=== PATIENT | female | born 1990 | race Caucasian/White ===

== ENCOUNTER 2019-10-10 19:53 | Observation (INO) | payer OTHER ==
--- NOTE | 2019-10-10 21:21 | ED ---
General Adult HPI - General Chief complaint: ENT Stated complaint: Difficulty swallowing Time Seen by Provider: 10/10/19 20:20 Source: patient, family Mode of arrival: ambulatory Limitations: no limitations - History of Present Illness Initial comments: Dictation was produced using [employer] dictation software. please excuse any grammatical, word or spelling errors. This patient was cared for during a federal and state declared state of emergency secondary to Covid 19 Chief Complaint: 39-year-old feel presents with fatigue and dysphagia History of Present Illness: Patient 39-year-old female she presents today with chronic fatigue and dysphagia. Patient states that her symptoms all started several months ago where she was diagnosed with pelvic congestion syndrome. Patient has been worked up extensively by primary care physician. She was just seen by the neurologist recently. She's been getting worked up for dysphagia and fatigue. She reports that she had a normal EGD recently. Patient recently had a chest CT. She is scheduled to have MR studies ordered by her neurologist. According to family member at bedside patient has been more fatigued than usual prompting visitation to the emergency department today. Patient's also have further workup done in 2 weeks however guarded patient and family member she cannot wait 2 weeks. She's been under a lot of stress given her recent medical issues. The ROS documented in this emergency department record has been reviewed and confirmed by me. Those systems with pertinent positive or negative responses have been documented in the HPI. All other systems are other negative and/or noncontributory. PHYSICAL EXAM: General Impression: Alert and oriented x3, not in acute distress, no drooling, no respiratory distress HEENT: Normocephalic atraumatic, extra-ocular movements intact, pupils equal and reactive to light bilaterally, mucous membranes moist. Cardiovascular: Heart regular rate and rhythm Chest: Able to complete full sentences, no retractions, no tachypnea Abdomen: abdomen soft, non-tender, non-distended, no organomegaly Musculoskeletal: Pulses present and equal in all extremities, no peripheral edema Motor: no focal deficits noted Neurological: CN II-XII grossly intact, no focal motor or sensory deficits noted Skin: Intact with no visualized rashes Psych: Normal affect and mood ED course: 29-year-old female presents with chief complaint of dysphagia and fatigue. According to patient patient has extensive workup that has really been performed. There is a lot of pending studies left. Part of the reason why coming to the emergency department was patient reports that she cannot wait much longer for her testing to be performed. Patient's not in any acute distress at this time. Does not drooling or showing signs of respiratory distress. Patient refused x-ray imaging she states that she just had this done recently at her neurologist office. Family member at bedside pulled me aside privately and reports that he is concerned about her mental health. He reports that patient has been a lot less upbeat and outgoing as usual. He does not feel concerned about any suicidality or homicidality. He has not noted any strange behavior. Laboratory evaluation obtained showing no acute processes. Patient did not feelcomfortable being discharged. Patient does not appear to be in any significant distress at this time patient be admitted observation with consultation to GI. Patient will be admitted to [facility] hospitalist group. We will have psychiatry on consult as well. - Related Data Allergies Allergy/AdvReac Type Severity Reaction Status Date / Time Penicillins Allergy Rash/Hives Verified 10/10/19 20:04 Sulfa (Sulfonamide Allergy Rash/Hives Verified 10/10/19 20:04 Antibiotics) Review of Systems ROS Statement: Those systems with pertinent positive or pertinent negative responses have been documented in the HPI. ROS Other: All systems not noted in ROS Statement are negative. Past Medical History Additional Past Medical History / Comment(s): swallowing difficulty History of Any Multi-Drug Resistant Organisms: None Reported Additional Past Surgical History / Comment(s): EGD Past Psychological History: Anxiety Smoking Status: Never smoker Past Alcohol Use History: None Reported Past Drug Use History: None Reported General Exam Limitations: no limitations Course Vital Signs 10/10/19 19:58 Temperature 98.4 F Pulse Rate 87 Respiratory 20 Rate Blood Pressure 116/76 O2 Sat by Pulse 98 Oximetry Medical Decision Making - Lab Data Result diagrams: 10/10/19 21:51 10/10/19 21:51 Lab Results 10/10/19 10/10/19 Range/Units 21:51 21:51 WBC 6.6 (3.8-10.6) k/uL RBC 4.76 (3.80-5.40) m/uL Hgb 13.9 (11.4-16.0) gm/dL Hct 41.7 (34.0-46.0) % MCV 87.6 (80.0-100.0) fL MCH 29.2 (25.0-35.0) pg MCHC 33.4 (31.0-37.0) g/dL RDW 12.3 (11.5-15.5) % Plt Count 202 (150-450) k/uL Neutrophils % 58 % Lymphocytes % 33 % Monocytes % 5 % Eosinophils % 1 % Basophils % 1 % Neutrophils # 3.8 (1.3-7.7) k/uL Lymphocytes # 2.2 (1.0-4.8) k/uL Monocytes # 0.3 (0-1.0) k/uL Eosinophils # 0.1 (0-0.7) k/uL Basophils # 0.1 (0-0.2) k/uL Sodium 138 (137-145) mmol/L Potassium 4.0 (3.5-5.1) mmol/L Chloride 106 (98-107) mmol/L Carbon Dioxide 25 (22-30) mmol/L Anion Gap 7 mmol/L BUN 9 (7-17) mg/dL Creatinine 0.65 (0.52-1.04) mg/dL Est GFR (CKD-EPI)AfAm >90 (>60 ml/min/1.73 sqM) Est GFR (CKD-EPI)NonAf >90 (>60 ml/min/1.73 sqM) Glucose 82 (74-99) mg/dL Calcium 9.1 (8.4-10.2) mg/dL Magnesium 2.0 (1.6-2.3) mg/dL Lipase 243 (23-300) U/L Disposition Clinical Impression: Dysphagia Disposition: ADMITTED IP TO THIS [facility] Condition: Fair Referrals: Con Coleman MD [Primary Care Provider] - 1-2 days Decision Time: 00:04
[2019-10-10 22:04] LABS: Basophils # (A) 0.1 k/uL (0-0.2); Basophils % (A) 1 %; Eosinophils # (A) 0.1 k/uL (0-0.7); Eosinophils % (A) 1 %; HCT 41.7 % (34.0-46.0); HGB 13.9 gm/dL (11.4-16.0); Lymphocytes # (A) 2.2 k/uL (1.0-4.8); Lymphocytes % (A) 33 %; MCH 29.2 pg (25.0-35.0); MCHC 33.4 g/dL (31.0-37.0); MCV 87.6 fL (80.0-100.0); Monocytes # (A) 0.3 k/uL (0-1.0); Monocytes % (A) 5 %; Neutrophils # (A) 3.8 k/uL (1.3-7.7); Neutrophils % (A) 58 %; Platelet Count 202 k/uL (150-450); RBC 4.76 m/uL (3.80-5.40); RDW 12.3 % (11.5-15.5); WBC 6.6 k/uL (3.8-10.6)
[2019-10-10 22:16] LABS: African American GFR (CKD) >90 (>60 ml/min/1.73 sqM); Anion Gap 7 mmol/L; Blood Urea Nitrogen 9 mg/dL (7-17); Calcium 9.1 mg/dL (8.4-10.2); Carbon Dioxide 25 mmol/L (22-30); Chloride 106 mmol/L (98-107); Glucose 82 mg/dL (74-99); Non-African American GFR(CKD) >90 (>60 ml/min/1.73 sqM); Sodium 138 mmol/L (137-145)
[2019-10-11] MEDS ORDERED: NALOXONE 0.4 MG/ML 1 ML VIAL IV PRN (00:04)
[2019-10-11] MEDS: SODIUM CHLORIDE 0.9% 1,000 ML IV SCH ×3 (01:11→20:18)
[2019-10-11] MEDS: PANTOPRAZOLE 40 MG TABLET PO SCH ×2 (10:36→16:24)
--- NOTE | 2019-10-11 15:31 | P.CONS ---
History of Present Illness - Reason for Consult Consult date: 10/11/19 Dysphagia Requesting physician: Kalli Miller - Chief Complaint Fatigue, weakness, difficulty swallowing - History of Present Illness 29-year-old female who presented to the hospital for evaluation of increasing weakness and fatigue and difficulty swallowing. Patient reports problems with what she describes as gastritis since July. She reports bloating, abdominal distention and episodes of difficulty swallowing. She reports the sensation of food getting stuck and reports that it now feels as if she has the same problem with liquids. She also reports regurgitation and sore throat. The patient had endoscopic evaluation with a surgeon, Dr. Santos, in evaluation and reports that she was told that she had LA grade B esophagitis in that based on her EGD.she may have a motility disorder of her esophagus. She was started on Prilosec therapy and Reglan therapy. Currently she is no longer taking Prilosec and only taking Reglan on an as-needed basis. The patient has had several months of fatigue and is being evaluated with the neurology service with plan for outpatient MRI. She is also recently been diagnosed with pelvic congestion syndrome which she reports causes lower abdominal bloating and distention. She states that bowel movements are normal with no signs or symptoms of GI bleeding. No prior colonoscopy. Review of Systems REVIEW OF SYSTEMS: CONSTITUTIONAL: Denies any fevers, chills, but does report generalized weakness and fatigue. CARDIOVASCULAR: Denies any chest pain, palpitations high or low blood pressures RESPIRATORY: Denies any shortness of breath, hemoptysis or cough. GENITOURINARY: No dysuria or hematuria. MUSCULOSKELETAL: No weakness reported. SKIN: Denies any new rashes or lesions, jaundice or pallor. PSYCHIATRIC: Patient is having depressed mood and anxiety in association with medical problems. NEUROLOGY: Denies headache, denies any new focal deficits. EARS/NOSE/THROAT: No recent hearing change, congestion, nasal discharge or sore throat. EYES: No pain in eyes, discharge or change in vision. GASTROINTESTINAL: As per HPI. Past Medical History Additional Past Medical History / Comment(s): swallowing difficulty History of Any Multi-Drug Resistant Organisms: None Reported Additional Past Surgical History / Comment(s): EGD Past Anesthesia/Blood Transfusion Reactions: No Reported Reaction Past Psychological History: Anxiety Smoking Status: Never smoker Past Alcohol Use History: None Reported Past Drug Use History: None Reported Additional History: Family history: Reviewed with the patient and noncontributor y to current medical presentation. Medications and Allergies Home Medications Medication Instructions Recorded Confirmed Type Buspar (Unknown Dose) 1 tab PO DAILY 10/11/19 10/11/19 History Cetirizine HCl [Zyrtec] 10 mg PO DAILY PRN 10/11/19 10/11/19 History LORazepam [Ativan] 0.5 mg PO Q8H PRN 10/11/19 10/11/19 History Metoclopramide HCl [Reglan] 5 mg PO TID PRN 10/11/19 10/11/19 History Allergies Allergy/AdvReac Type Severity Reaction Status Date / Time Penicillins Allergy Rash/Hives Verified 10/11/19 09:27 Sulfa (Sulfonamide Allergy Rash/Hives Verified 10/11/19 09:27 Antibiotics) Physical Exam Vitals: Vital Signs Temp Pulse Pulse Resp BP BP Pulse Ox 10/11/19 07:51 98.4 F 58 L 16 113/52 98 10/11/19 03:30 62 16 10/11/19 00:40 97.4 F L 62 16 111/73 99 10/11/19 00:18 97.7 F 76 16 98/65 100 10/10/19 19:58 98.4 F 87 20 116/76 98 Intake and Output 10/10/19 10/11/19 10/11/19 22:59 06:59 14:59 Other: # Voids 1 Weight 61.235 kg 61.235 kg On physical examination, patient appears comfortable in no apparent distress. HEAD: Normocephalic, atraumatic. EYES: No scleral icterus. No conjunctival injection. MOUTH: No lesions, tongue midline. NECK: Trachea midline, no gross abnormalities. CHEST: Clear to auscultation with no wheezing or rhonchi appreciated. HEART: Regular rate and rhythm. ABDOMEN: Soft, thin. Bowel sounds are positive. No organomegaly. No guarding or rigidity. EXTREMITIES: No pedal edema. SKIN: No rashes, no jaundice. NEUROLOGIC: Alert and oriented x3. No focal deficits. Results CBC & Chem 7: 10/10/19 21:51 10/10/19 21:51 Assessment and Plan (1) Dysphagia Narrative/Plan: 29-year-old female with reports of increasing weakness and fatigue over the past 2 months currently undergoing outpatient evaluation with neurology with plans for MRI was also been experiencing symptoms of dysphagia. She reports esophagea l dysphagia primarily to solids, however she is now also reporting episodes of dysphagia with liquids. She reports associated regurgitation, sore throat as well as bloating and fullness in her stomach. The patient has undergone an upper endoscopy with the surgical service in evaluation significant for LA grade B esophagitis per the patient's report, she also reports that at that time she was also informed she may have a motility disorder. No prior evaluation with manometry. The patient does have problems with anxiety which has worsened due to her medical problems. Unclear etiology of symptoms as the patient has discontinued PPI therapy on her own, this may be related to reflux esophagitis, functional bowel disorder, underlying anxiety, with a motility disorder not excluded or other etiology. Current Visit: Yes Status: Acute Code(s): R13.10 - DYSPHAGIA, UNSPECIFIED SNOMED Code(s): 29875620 (2) Esophagitis Current Visit: Yes Status: Acute Code(s): K20.9 - ESOPHAGITIS, UNSPECIFIED SNOMED Code(s): 94796371 Plan: Supportive care Okay for diet as tolerated Would recommend reinitiating PPI therapy in the setting of esophagitis which has been explained to the patient at length and Protonix 40 mg twice daily added Continue workup by neurology Psychiatry asked to evaluate the patient due to issues with anxiety and depress ion No plans for endoscopic evaluation given recent EGD Patient continues to have symptoms of dysphagia in the future can evaluate with manometry in the outpatient setting Thank you for allowing us to participate in the care of the patient
--- NOTE | 2019-10-11 17:12 | P.HPIM ---
History of Present Illness H&P Date: 10/11/19 Chief Complaint: difficulty swallowing patient is a 29-year-old female with a known history of depression/anxiety and was started on BuSpar in July 2019, panic attacks came to ER with complaints of trouble eating and difficulty swallowing and felt like something choking up in the throat sometimes for the past 2 months. During the last 2 days patient symptoms got worse.patient says that she felt very tired and not eating solids and same time she was having trouble swallowing liquids as well which made her come to ER.patient has not been sleeping and not concentrating on anything.patient was also complaining of nausea. No episodes of vomiting. No chest pain or shortness breath. No cough or sputum production. [place] like abdominal bloating. No pain. No leg swelling. Patient did have EGD showed elevated be esophagitis and was started on Protonix but she has not been taking it and states that is not helping her symptoms. patient has been on follow-up with neurology due to dysphagia and fatigue and and is being worked up for possible multiple sclerosis as well. Patient says that her right side of the throat feels full. Patient recently had chest CT as above. Awaiting for MRI of the brain in the next week. As per her family member patient has been having numbness and paresthesias of the tongue and sometimes patient was having panic attacks. Patient was lying on the floor and crying. Patient was also diagnosed with pelvic congestion syndrome by her DIGITAL TECHNICIAN physician and referred to vascular surgeon. Patient had ultrasound of the pelvis at the time. No intervention was done. Patient also says that she has been very stressful with the medical conditions recently. Laboratory data within normal limits. Review of Systems Constitutional: Patient denies any fever or chills . No generalized weakness or weight loss. Abdomen: patient does have abdominal bloating and nausea. Difficulty swallowing .. Cardiovascular: Patient denies any chest pain or short of breath no palpitations. Respiratory: patient denied any cough is from production. No shortness of breath Neurologic: Patient denied any numbness or tingling headache. Musculoskeletal: Patient denies any complaints of joint swelling or deformity. Paracentesis on the tongue. Skin: Negative Psychiatric: anxiety Endocrine: No heat or cold intolerance. No recent weight gain. Genitourinary: No dysuria or hematuria. All other 14 point ROS negative except the above Past Medical History Additional Past Medical History / Comment(s): swallowing difficulty History of Any Multi-Drug Resistant Organisms: None Reported Additional Past Surgical History / Comment(s): EGD Past Anesthesia/Blood Transfusion Reactions: No Reported Reaction Past Psychological History: Anxiety Smoking Status: Never smoker Past Alcohol Use History: None Reported Past Drug Use History: None Reported Medications and Allergies Home Medications Medication Instructions Recorded Confirmed Type Buspar (Unknown Dose) 1 tab PO DAILY 10/11/19 10/11/19 History Cetirizine HCl [Zyrtec] 10 mg PO DAILY PRN 10/11/19 10/11/19 History LORazepam [Ativan] 0.5 mg PO Q8H PRN 10/11/19 10/11/19 History Metoclopramide HCl [Reglan] 5 mg PO TID PRN 10/11/19 10/11/19 History Allergies Allergy/AdvReac Type Severity Reaction Status Date / Time Penicillins Allergy Rash/Hives Verified 10/11/19 09:27 Sulfa (Sulfonamide Allergy Rash/Hives Verified 10/11/19 09:27 Antibiotics) Physical Exam Vitals: Vital Signs Temp Pulse Pulse Resp BP BP Pulse Ox 10/11/19 07:51 98.4 F 58 L 16 113/52 98 10/11/19 03:30 62 16 10/11/19 00:40 97.4 F L 62 16 111/73 99 10/11/19 00:18 97.7 F 76 16 98/65 100 10/10/19 19:58 98.4 F 87 20 116/76 98 Intake and Output 10/10/19 10/11/19 10/11/19 22:59 06:59 14:59 Other: # Voids 1 Weight 61.235 kg 61.235 kg PHYSICAL EXAMINATION: Patient is lying in the bed comfortably, no acute distress, awake alert and oriented.. HEENT: Normocephalic. Neck is supple. Pupils reactive. Nostrils clear. Oral cavity is moist. Ears reveal no drainage. Neck reveals no JVD, carotid bruits, or thyromegaly. CHEST EXAMINATION: Trachea is central. Symmetrical expansion. Lung miller clear to auscultation and percussion. CARDIAC: Normal S1, S2 with no gallops. No murmurs ABDOMEN: Soft. Bowel sounds normal. No organomegaly. No abdominal bruits. Extremities: reveal no edema. No clubbing or cyanosis Neurologically awake, alert, oriented x3 with well-coordinated movements. No focal deficits noted Skin: No rash or skin lesions. Psychiatric: Coperative.anxious. Musculoskeletal: No joint swelling or deformity. Normal range of motion. Results CBC & Chem 7: 10/10/19 21:51 10/10/19 21:51 Thrombosis Risk Factor Assmnt - DVT/VTE Prophylaxis DVT/VTE Prophylaxis: Mechanical Prophylaxis ordered - Choose All That Apply Any of the Below Risk Factors Present?: No Other Risk Factors: No Other congenital or acquired thrombophilia - If yes, enter type in comment: No Thrombosis Risk Factor Assessment Level: Very Low Risk Assessment and Plan Assessment: dysphagia with recent history of elevated grade B esophagitis as per patient EG D.possible reflux esophagitis versus motility disorder along with underlying anxiety. Anxiety/depression and panic attacks. history of pelvic congestion syndrome was told by her DIGITAL TECHNICIAN physician. DVT prophylaxis and TM place Plan: patient be continued on PPI and gentle hydration. Modified barium swallow study was ordered. GI is following. Noted for repeat EGD at this time. Psychiatry was consulted due to anxiety and panic attacks as well as depression. Patient is being worked up for possible MS as an outpatient and MRI was scheduled next week. Continue with symptomatic treatment and follow up closely. Further recommendations based on the clinical course. Discussed the patient in detail and also with her family member at bedside. Time with Patient: Greater than 30
[2019-10-12] MEDS: SODIUM CHLORIDE 0.9% 1,000 ML IV SCH (06:05)
[2019-10-12 06:07] LABS: Basophils % (A) 1 %; Eosinophils # (A) 0.1 k/uL (0-0.7); Eosinophils % (A) 1 %; HCT 37.8 % (34.0-46.0); HGB 12.1 gm/dL (11.4-16.0); Lymphocytes # (A) 1.6 k/uL (1.0-4.8); Lymphocytes % (A) 31 %; MCH 28.6 pg (25.0-35.0); MCHC 31.9 g/dL (31.0-37.0); MCV 89.6 fL (80.0-100.0); Mean Platelet Volume 8.4; Monocytes # (A) 0.3 k/uL (0-1.0); Monocytes % (A) 6 %; Neutrophils # (A) 3.1 k/uL (1.3-7.7); Neutrophils % (A) 60 %; Platelet Count 153 k/uL (150-450); RBC 4.22 m/uL (3.80-5.40); RDW 12.4 % (11.5-15.5); WBC 5.3 k/uL (3.8-10.6)
[2019-10-12 06:22] LABS: ALT 7 U/L (4-34); AST 16 U/L (14-36); African American GFR (CKD) >90 (>60 ml/min/1.73 sqM); Albumin 3.4 g/dL (3.5-5.0); Alkaline Phosphatase 43 U/L (38-126); Anion Gap 3 mmol/L; Blood Urea Nitrogen 9 mg/dL (7-17); Calcium 8.6 mg/dL (8.4-10.2); Carbon Dioxide 25 mmol/L (22-30); Chloride 110 mmol/L (98-107); Glucose 86 mg/dL (74-99); Non-African American GFR(CKD) >90 (>60 ml/min/1.73 sqM); Potassium 4.4 mmol/L (3.5-5.1); Sodium 138 mmol/L (137-145); Total Bilirubin 0.4 mg/dL (0.2-1.3); Total Protein 5.9 g/dL (6.3-8.2)
[2019-10-12 07:41] VITALS: BP 107/66; PULSE 46; RESP 12; TEMP 98.3
[2019-10-12] MEDS: PANTOPRAZOLE 40 MG TABLET PO SCH (10:36)
--- NOTE | 2019-10-12 10:39 | FL ---
EXAMINATION TYPE: FL barium swallow w video DATE OF EXAM: 10/12/2019 MODIFIED SWALLOW / DEGLUTITION STUDY CLINICAL HISTORY: Dysphagia. TECHNIQUE: Deglutition study is performed utilizing thin liquid barium, honey and nectar thick liqui d barium and barium coated muffin. Total of 66 seconds of fluoroscopic time utilized during procedure . 0 spot images saved to PACS. COMPARISON: None. FINDINGS: The oral and pharyngeal phases show satisfactory initiation and propagation with all modali ties tested. Satisfactory mastication is seen with solid modalities tested. There is no evidence of penetration or aspiration with any modality tested. No significant pharyngeal residue was appreciate d. IMPRESSION: Normal deglutition study. Please refer to speech therapist notes for further details if necessary.
--- NOTE | 2019-10-12 14:03 | P.CN ---
Psychiatric Consult - . Consult date: 10/12/19 Consult:: IDENTIFYING DATA: She is a 29-year-old single female presented to the ED with complaints of fatigue and dysphagia. During her medical assessment she complained of anxiety and described experiencing "anxiety attacks". HISTORY OF PRESENT ILLNESS: The EPS nurse evaluated her in the ED and noted that she was not suicidal or homicidal and is interested in outpatient mental health services. The EPS nurse recommended outpatient mental health services. However, the ED physician submitted a psychiatric consult for "depression". I evaluated the medical record and interviewed the patient. She explained that she feels overwhelmed by her medical problems. Prior to development of the abdominal distress and difficulty swallowing she was healthy. She described increasing anxiety and distress over her medical problems. She denied feeling persistently depressed or having thoughts of or suicide. The increase in anxiety was treated by her primary care provider with BuSpar 7.5 mg by mouth twice a day. She stated she only takes the BuSpar "intermittently". She denied feelings of hopelessness, helplessness and worthlessness. She denied persistent problems with sleep, appetite, energy or concentration. She denied experiencing obsessions or compulsions. She denied psychotic symptoms as auditory, visual or olfactory hallucinations, ideas reference, thought insertion, thought broadcasting or thought control. She denied use of alcohol or drugs including marijuana. PAST PSYCHIATRIC HISTORY: She's had no past psychiatric hospitalizations. Her primary care provider prescribes Zoloft about 4 years ago after which she described as a "difficult breakup" and the of her dog. She took the Zoloft for 7 months. She sought individual counseling last year for "family problems" and returned to the same therapist earlier this year with increased anxieity and concerns over her health. She denied history of suicide attempts or gestures. She denied a history of periods of elevated mood or sustained irritability consistent with molly or hypomania. She denied a past history of psychotic episodes. PAST MEDICAL HISTORY: She denied history of major medical problems.. ALLERGIES: Penicillins, sulfa. SUBSTANCE USE HISTORY: Denied. FAMILY PSYCHIATRIC/SUBSTANCE USE HISTORY: Her maternal grandmother history of depression and OCD. SOCIAL HISTORY: His born and raised in an intact family. She has 3 siblings. She graduated high school and received a bachelor's degree in journalism from [employer]. 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 She is single and has no children. She lives with her significant other.. MENTAL STATUS EXAM: She presented as a casually groomed young female who was pleasant on approach. She was sitting calmly in bed. She made eye contact and attended to interview. She had no distinguishing features or prominent physical abnormalities. She had a blunted but bright facial expression. She was alert and oriented to person, place and time. She had no abnormality of psychomotor activity. Her speech was spontaneous with normal rate, rhythm and volume. Affect was anxious but stable and appropriate. She denied suicidal ideation and wishes. She denied homicidal ideation. She denied feeling hopeless, helpless or worthless. She ruminated about her health but did not express ideas reference, paranoid ideation or delusions. Her thinking was abstract and associations were coherent, logical and goal directed. She denied hallucinations did not appear to be responding to internal stimuli.. IMPRESSIONS: She is 21-year-old single female who has history of a de pressive disorder successfully treated with Zoloft. She presents with complaints of increasing anxiety in the context of worsening health problems. She denied persistent feelings depression or thoughts of or suicide. There is no evidence of psychosis. The primary problem broken should be treatment of her medical concerns. There is no indication for transfer to psychiatric unit. She should continue with her outpatient mental health services including the [facility]. PLAN: Discharge home with follow-up through [facility]. Continue his person 0.5 mg by mouth twice a day, anxiety worsens consider Zoloft beginning at 25 mg daily and titrated according to clinical response and tolerance. Thank you for this consult, psychiatrist on the case.. 10/12/19 13:51
--- NOTE | 2019-10-12 14:05 | PN ---
PROGRESS NOTE DATE OF DICTATION: October 12, 2019 The patient is a 29-year-old pleasant white female seen in consultation by Dr. Hughes yesterday for evaluation of dysphagia. The patient states that she has been having dysphagia to solids and liquids for the last 2 months' duration. She had an upper endoscopy done by Dr. Santos at [facility] a month ago that showed evidence of esophageal dysmotility and some reflux esophagitis. She has longstanding history of GERD and has been on Prilosec 20 mg daily with no help. She was treated with Reglan with no help. She was admitted to the hospital with multiple other symptoms and we are consulted for this. She had a modified barium swallow done with the aid of fluoroscopy that was normal this morning. She lost 15 pounds since the onset of the symptoms. PHYSICAL EXAMINATION: Appears comfortable, no apparent distress. VITAL SIGNS: Stable. Blood pressure is 107/66, pulse rate 46, temperature 98.3. HEENT examination unremarkable. Conjunctivae pink. Sclerae anicteric. Oral cavity no lesions. NECK: No JVD. No lymph node enlargement. CHEST was clear to auscultation. HEART: Regular rate and rhythm. ABDOMEN: Soft. Bowel sounds are positive. No organomegaly. EXTREMITIES: No pedal edema. SKIN no rashes. NEUROLOGIC: Alert and oriented x3. No focal deficits. LABS: From today, CBC with differential count is within normal limits. CMP is normal. IMPRESSION: 1. Progressive dysphagia to liquids and solids for the last 2 months duration, upper endoscopy done by Dr. Santos at [facility] a month ago showed some reflux esophagitis. Patient on Prilosec 20 mg daily with no help. There was a suggestion of possible esophageal dysmotility. She did have a modified barium swallow done this morning that was unremarkable. At this time, the possibility of esophageal motility disorder needs to be considered. 2. History of gastroesophageal reflux disease. 3. History of anxiety. 4. Sore throat and severe nasal congestion. RECOMMENDATIONS: I had a lengthy discussion with the patient regarding further workup. Discussed with her modified barium swallow results were within normal limits. At this time, possibility of esophageal motility needs to be considered. She will need to have esophageal manometry scheduled on an outpatient basis. Discussed with her. She is agreeable to it. Thank you for this consultation. MMODL / IJN: [id number] /
--- NOTE | 2019-10-12 23:34 | P.DS ---
Providers Date of admission: 10/11/19 00:05 Attending physician: Kalli Miller Consults: 10/11/19 00:04 Consult Physician Routine Consulting Provider: Twin Yang Consult Reason/Comments: depression Do you want consulting provider notified?: Yes Consult Physician Routine Consulting Provider: Manjit Hughes Consult Reason/Comments: dysphagia Do you want consulting provider notified?: Yes Primary care physician: Con Coleman MD Hospital Course: Diagnoses dysphagia , patient passed swallow evaluation. Evaluated by GI team. She will need manometry test as an outpatient Anxiety/depression and panic attacks. cleared by psychiatrist for discharge history of pelvic congestion syndrome was told by her ENTERPRISE SOFTWARE ENGINEER physician. DVT prophylaxis and TM place Hospital course: patient is a 29-year-old female with a known history of depression/anxiety and was started on BuSpar in July 2019, panic attacks came to ER with complaints of trouble eating and difficulty swallowing for the last 2 months.During the last 2 days patient symptoms got worse. Patient underwent Byam swallow with video which came back as (normal deglutition study). Patient is started on diet after that. Licensing Engineer evaluated the patient medically clear for discharge Swallow evaluation showed patient demonstrating normal oropharyngeal swallow. patient was complaining of from multiple issues like pressure and pain in her abdomen, she was recently diagnosed with pelvic congestion syndrome as per patient, she has twitching in the arm which was not most just during this admission, pressure behind the ear, choking in the throat, fullness, ALLERGY, ear pain, and other problems, besides anxiety therefore suck consult was called, patient has been evaluated by the EPS on 10/10 at 20:42. Patient denies suicidal or homicidal ideation and she is looking for help with outpatient therapy. However psychiatric team cleared the patient for discharge and damage resources is provided for her. Patient was cleared for discharge by GI and psychiatry service Problems and management plan were discussed with the patient and he verbalized understanding and acceptance Patient was found stable and can be discharged home however he needs follow-up as an outpatient. Patient was instructed to follow up with PCP within one week and patient agrees. Also discussed the case with Dr. Worthington and she recommended the patient will need manometry but can be done as an outpatient. I discussed with the patient the recommendation to follow up with Dr. Ruiz in the office within one week, she decreased to call and make her own appointment. Also the staff contacted Dr. Worthington office was going to contact the patient as well Gen: patient is a AAOx3, no distress CVS: S1-S2, RRR, no murmur Lungs: B/L CTA, no wheezing Abdomen: soft, no distention, no tenderness, positive bowel sounds Extremity: no leg edema or induration Time spent more than 35 minutes Patient Condition at Discharge: Fair Plan - Discharge Summary Discharge Rx Participant: No New Discharge Prescriptions: New Pantoprazole [Protonix] 40 mg PO DAILY #21 tablet.dr Vallejo Metoclopramide HCl [Reglan] 5 mg PO TID PRN PRN Reason: gastric reflux LORazepam [Ativan] 0.5 mg PO Q8H PRN PRN Reason: Anxiety Cetirizine HCl [Zyrtec] 10 mg PO DAILY PRN PRN Reason: seasonal allergies busPIRone HCL 7.5 mg PO BID Discharge Medication List Cetirizine HCl [Zyrtec] 10 mg PO DAILY PRN 10/11/19 [History] LORazepam [Ativan] 0.5 mg PO Q8H PRN 10/11/19 [History] Metoclopramide HCl [Reglan] 5 mg PO TID PRN 10/11/19 [History] Pantoprazole [Protonix] 40 mg PO DAILY #21 tablet. 10/12/19 [Rx] busPIRone HCL 7.5 mg PO BID 10/12/19 [History] Follow up Appointment(s)/Referral(s): Nela Worthington MD [STAFF PHYSICIAN] - 1 Week (Licensing Engineer, will schedule OP esophageal manometry outpatient and follow up 1 week after test) Con Coleman MD [Primary Care Provider] - 1-2 days Activity/Diet/Wound Care/Special Instructions: Regular diet Activity is limited till you see your doctor Discharge Disposition: HOME SELF-CARE
== END 2019-10-12 15:16 | disposition home or self-care (01) ==
LOC: EC 19:53 → 1SOBS 10-11 00:05
PROVIDERS: ADMIT Hospitalist; ATTEND Hospitalist
DX: R13.10 Dysphagia, unspecified (principal); N94.89 Other specified conditions associated with female genital organs and menstrual cycle; F41.9 Anxiety disorder, unspecified; K21.0 Gastro-esophageal reflux disease with esophagitis; K22.4 Dyskinesia of esophagus; R09.81 Nasal congestion; J02.9 Acute pharyngitis, unspecified; R53.1 Weakness; R53.83 Other fatigue; F32.9 Major depressive disorder, single episode, unspecified; F41.0 Panic disorder [episodic paroxysmal anxiety]; Z79.899 Other long term (current) drug therapy; Z88.0 Allergy status to penicillin; Z88.2 Allergy status to sulfonamides; Z03.818 Encounter for observation for suspected exposure to other biological agents ruled out
CPT/HCPCS: 96360; 96361 ×2; 99284 ×2; 36415; 92611; 80053; 80048; 83690; 83735; 85025 ×2; 74230; G0378 ×2; U0003

== ENCOUNTER 2019-11-05 05:55 | Emergency (ER) | payer OTHER ==
[2019-11-05 06:06] VITALS: TEMP 98.1
[2019-11-05] MEDS ORDERED: SODIUM CHLORIDE 0.9% 1,000 ML IV STA (06:27)
[2019-11-05] MEDS ORDERED: KETOROLAC 30 MG/ML 1 ML VIAL IVP STA (06:27)
--- NOTE | 2019-11-05 06:35 | ED ---
Abdominal Pain HPI - General Chief Complaint: Abdominal Pain Stated Complaint: Abd pain, pelvic pain Time Seen by Provider: 11/05/19 06:12 Source: patient, family, RN notes reviewed, old records reviewed Mode of arrival: ambulatory Limitations: no limitations - History of Present Illness Initial Comments: ARIANNA is a 29-year-old female with a known history of pelvic congestion syndrome. She presents emergency Department today with complaints of full a central lower abdomen and with referred back pain today. She states that she feels that her lower extremities have been edematous and complains of spider veins on her legs. Patient states that this pain in the abdomen and pelvis and full Pio's has been progressive for the past 6 months. She states that she is scheduled to see a paint technician at [facility] for chronic pelvic pain in the upcoming months. She states she's also had some difficulty with swallowing and has an upcoming esophageal motility study tomorrow with Dr. Scott. She states that she has a difficult time eating due to dysphasia. She was recently admitted for this and consult to GI and psychiatry. Patient states she's had multiple CAT scans and ultrasounds for chronic condition at this time. She denies any heavy lifting to cause the back discomfort reports during to some minor exercises the past day. - Related Data Home Medications Medication Instructions Recorded Confirmed busPIRone HCL 7.5 mg PO TID 10/12/19 11/04/19 Escitalopram [Lexapro] 10 mg PO DAILY 11/04/19 11/04/19 Allergies Allergy/AdvReac Type Severity Reaction Status Date / Time Penicillins Allergy Rash/Hives Verified 11/05/19 06:06 Sulfa (Sulfonamide Allergy Rash/Hives Verified 11/05/19 06:06 Antibiotics) Review of Systems ROS Statement: Those systems with pertinent positive or pertinent negative responses have been documented in the HPI. ROS Other: All systems not noted in ROS Statement are negative. Past Medical History Additional Past Medical History / Comment(s): swallowing difficulty History of Any Multi-Drug Resistant Organisms: None Reported Additional Past Surgical History / Comment(s): EGD Past Anesthesia/Blood Transfusion Reactions: No Reported Reaction Past Psychological History: Anxiety Smoking Status: Never smoker Past Alcohol Use History: None Reported Past Drug Use History: None Reported - Past Family History Mother Family Medical History: No Reported History General Exam - General Exam Comments Initial Comments: 29 year old female, no distress. Limitations: no limitations General appearance: alert, in no apparent distress Head exam: Present: atraumatic, normocephalic, normal inspection Eye exam: Present: normal appearance, PERRL, EOMI. Absent: scleral icterus, conjunctival injection, periorbital swelling ENT exam: Present: normal exam, mucous membranes moist Neck exam: Present: normal inspection. Absent: tenderness, meningismus, lymphad enopathy Respiratory exam: Present: normal lung sounds bilaterally. Absent: respiratory distress, wheezes, rales, rhonchi, stridor Cardiovascular Exam: Present: regular rate, normal rhythm, normal heart sounds. Absent: systolic murmur, diastolic murmur, rubs, gallop, clicks GI/Abdominal exam: Present: soft, tenderness (minimal suprapubic tenderness, no guarding), normal bowel sounds. Absent: distended, guarding, rebound, rigid Extremities exam: Present: normal inspection, full ROM, normal capillary refill. Absent: tenderness, pedal edema, joint swelling, calf tenderness Back exam: Present: normal inspection Neurological exam: Present: alert Psychiatric exam: Present: normal affect, normal mood Course Vital Signs 11/05/19 11/05/19 06:03 07:44 Temperature 98.1 F Pulse Rate 80 63 Respiratory 18 16 Rate Blood Pressure 122/85 115/80 O2 Sat by Pulse 97 99 Oximetry - Reevaluation(s) Reevaluation #1: 11/05/19 08:34 Patient is resting comfortably then appears in no distress. She states that she is still pain. Offered further testing such as imaging a CT ultrasound. She states that many of these the past and declines to have it today. Medical Decision Making - Medical Decision Making 29-year-old female with a known history of "pelvic congestion syndrome". Presents weren't started today complains of lower abdominal and back discomfort. She finished her menstrual cycle this week. At this time patient's labs reviewed and unremarkable. She reports she's had multiple ultrasounds and CAT scans done at [facility]. I offered Patient to have further testing and imaging today. I discussed the Patient needs to follow-up with gynecology and she states that she is planning to see paint technician for pelvic pain at [facility] in February. I discussed to inflammatory medication and discussed return parameters. She states while she is scheduled to have an esophageal motility study tomorrow. Discussed continuing without she has no vomiting and emergency department able to tolerate fluids. - Lab Data Result diagrams: 11/05/19 06:52 11/05/19 06:52 Lab Results 11/05/19 11/05/19 11/05/19 Range/Units 06:52 06:52 06:52 WBC 6.9 (3.8-10.6) k/uL RBC 4.71 (3.80-5.40) m/uL Hgb 13.8 (11.4-16.0) gm/dL Hct 41.1 (34.0-46.0) % MCV 87.4 (80.0-100.0) fL MCH 29.3 (25.0-35.0) pg MCHC 33.6 (31.0-37.0) g/dL RDW 12.4 (11.5-15.5) % Plt Count 206 (150-450) k/uL Neutrophils % 74 % Lymphocytes % 18 % Monocytes % 5 % Eosinophils % 0 % Basophils % 1 % Neutrophils # 5.2 (1.3-7.7) k/uL Lymphocytes # 1.2 (1.0-4.8) k/uL Monocytes # 0.4 (0-1.0) k/uL Eosinophils # 0.0 (0-0.7) k/uL Basophils # 0.0 (0-0.2) k/uL PT 10.6 (9.0-12.0) sec INR 1.0 (<1.2) APTT 23.5 (22.0-30.0) sec Sodium 137 (137-145) mmol/L Potassium 4.1 (3.5-5.1) mmol/L Chloride 104 (98-107) mmol/L Carbon Dioxide 26 (22-30) mmol/L Anion Gap 7 mmol/L BUN 12 (7-17) mg/dL Creatinine 0.67 (0.52-1.04) mg/dL Est GFR (CKD-EPI)AfAm >90 (>60 ml/min/1.73 sqM) Est GFR (CKD-EPI)NonAf >90 (>60 ml/min/1.73 sqM) Glucose 89 (74-99) mg/dL Plasma Lactic Acid Devin (0.7-2.0) mmol/L Calcium 9.3 (8.4-10.2) mg/dL Total Bilirubin 0.9 (0.2-1.3) mg/dL AST 20 (14-36) U/L ALT 11 (4-34) U/L Alkaline Phosphatase 54 (38-126) U/L Total Protein 7.1 (6.3-8.2) g/dL Albumin 4.5 (3.5-5.0) g/dL Amylase 76 (30-110) U/L Lipase 232 (23-300) U/L Urine Color Urine Appearance (Clear) Urine pH (5.0-8.0) Ur Specific [place] (1.001-1.035) Urine Protein (Negative) Urine Glucose (UA) (Negative) Urine Ketones (Negative) Urine Blood (Negative) Urine Nitrite (Negative) Urine Bilirubin (Negative) Urine Urobilinogen (<2.0) mg/dL Ur Leukocyte Esterase (Negative) Urine RBC (0-5) /hpf Urine WBC (0-5) /hpf Ur Squamous Epith Cells (0-4) /hpf Urine Bacteria (None) /hpf Urine Mucus (None) /hpf Urine HCG, Qual (Not Detectd) 11/05/19 11/05/19 11/05/19 Range/Units 06:52 07:44 07:47 WBC (3.8-10.6) k/uL RBC (3.80-5.40) m/uL Hgb (11.4-16.0) gm/dL Hct (34.0-46.0) % MCV (80.0-100.0) fL MCH (25.0-35.0) pg MCHC (31.0-37.0) g/dL RDW (11.5-15.5) % Plt Count (150-450) k/uL Neutrophils % % Lymphocytes % % Monocytes % % Eosinophils % % Basophils % % Neutrophils # (1.3-7.7) k/uL Lymphocytes # (1.0-4.8) k/uL Monocytes # (0-1.0) k/uL Eosinophils # (0-0.7) k/uL Basophils # (0-0.2) k/uL PT (9.0-12.0) sec INR (<1.2) APTT (22.0-30.0) sec Sodium (137-145) mmol/L Potassium (3.5-5.1) mmol/L Chloride (98-107) mmol/L Carbon Dioxide (22-30) mmol/L Anion Gap mmol/L BUN (7-17) mg/dL Creatinine (0.52-1.04) mg/dL Est GFR (CKD-EPI)AfAm (>60 ml/min/1.73 sqM) Est GFR (CKD-EPI)NonAf (>60 ml/min/1.73 sqM) Glucose (74-99) mg/dL Plasma Lactic Acid Devin 0.7 (0.7-2.0) mmol/L Calcium (8.4-10.2) mg/dL Total Bilirubin (0.2-1.3) mg/dL AST (14-36) U/L ALT (4-34) U/L Alkaline Phosphatase (38-126) U/L Total Protein (6.3-8.2) g/dL Albumin (3.5-5.0) g/dL Amylase (30-110) U/L Lipase (23-300) U/L Urine Color Yellow Urine Appearance Cloudy H (Clear) Urine pH 5.5 (5.0-8.0) Ur Specific [place] 1.025 (1.001-1.035) Urine Protein Trace H (Negative) Urine Glucose (UA) Negative (Negative) Urine Ketones 2+ H (Negative) Urine Blood Trace H (Negative) Urine Nitrite Negative (Negative) Urine Bilirubin Negative (Negative) Urine Urobilinogen <2.0 (<2.0) mg/dL Ur Leukocyte Esterase Small H (Negative) Urine RBC 1 (0-5) /hpf Urine WBC 6 H (0-5) /hpf Ur Squamous Epith Cells 3 (0-4) /hpf Urine Bacteria Rare H (None) /hpf Urine Mucus Moderate H (None) /hpf Urine HCG, Qual Not Detected (Not Detectd) Disposition Clinical Impression: Chronic abdominal pain Disposition: HOME SELF-CARE Condition: Good Instructions (If sedation given, give patient instructions): Abdominal Pain (E D) Additional Instructions: Please use medication as discussed. Please follow up with family doctor if symptoms have not improved over the next two days. Recommended follow-up with [facility]. Please return to the emergency room if your symptoms increase or worsen or for any other concerns. Is patient prescribed a controlled substance at d/c from ED?: No Referrals: Veronica Macias DO [Primary Care Provider] - 1-2 days Time of Disposition: 08:36
[2019-11-05 06:59] LABS: Basophils % (A) 1 %; Eosinophils % (A) 0 %; HCT 41.1 % (34.0-46.0); HGB 13.8 gm/dL (11.4-16.0); Lymphocytes # (A) 1.2 k/uL (1.0-4.8); Lymphocytes % (A) 18 %; MCH 29.3 pg (25.0-35.0); MCHC 33.6 g/dL (31.0-37.0); MCV 87.4 fL (80.0-100.0); Mean Platelet Volume 8.1; Monocytes # (A) 0.4 k/uL (0-1.0); Monocytes % (A) 5 %; Neutrophils # (A) 5.2 k/uL (1.3-7.7); Neutrophils % (A) 74 %; Platelet Count 206 k/uL (150-450); RBC 4.71 m/uL (3.80-5.40); RDW 12.4 % (11.5-15.5); WBC 6.9 k/uL (3.8-10.6)
[2019-11-05 07:07] LABS: Partial Thromboplastin Time 23.5 sec (22.0-30.0); Prothrombin Time 10.6 sec (9.0-12.0)
[2019-11-05 07:19] LABS: ALT 11 U/L (4-34); AST 20 U/L (14-36); African American GFR (CKD) >90 (>60 ml/min/1.73 sqM); Albumin 4.5 g/dL (3.5-5.0); Alkaline Phosphatase 54 U/L (38-126); Amylase 76 U/L (30-110); Anion Gap 7 mmol/L; Blood Urea Nitrogen 12 mg/dL (7-17); Calcium 9.3 mg/dL (8.4-10.2); Carbon Dioxide 26 mmol/L (22-30); Chloride 104 mmol/L (98-107); Glucose 89 mg/dL (74-99); Lipase 232 U/L (23-300); Non-African American GFR(CKD) >90 (>60 ml/min/1.73 sqM); Potassium 4.1 mmol/L (3.5-5.1); Sodium 137 mmol/L (137-145); Total Bilirubin 0.9 mg/dL (0.2-1.3); Total Protein 7.1 g/dL (6.3-8.2)
[2019-11-05] MEDS ORDERED: SODIUM CHLORIDE 0.9% 1,000 ML IV ONE (07:20)
[2019-11-05 07:46] VITALS: PULSE 63; RESP 16
[2019-11-05 08:08] LABS: Appearance,Urine Cloudy (Clear); Bacteria,Urine Rare /hpf; Bilirubin,Urine Negative (Negative); Blood,Urine Trace (Negative); Color,Urine Yellow; Glucose,Urine (UA) Negative (Negative); Ketones,Urine 2+ (Negative); Leukocyte Esterase,Urine Small (Negative); Mucus,Urine Moderate /hpf; Nitrite,Urine Negative (Negative); PH, Urine 5.5 (5.0-8.0); Protein,Urine Trace (Negative); RBC,Urine 1 /hpf (0-5); Specific Gravity,Urine 1.025 (1.001-1.035); Squamous Epithelial Cell,Urine 3 /hpf (0-4); Urobilinogen,Urine <2.0 mg/dL (<2.0); WBC,Urine 6 /hpf (0-5)
[2019-11-05] MEDS ORDERED: MORPHINE SULFATE 2 MG/ML SYRINGE IVP STA (08:34)
[2019-11-05] MEDS ORDERED: ACET/COD 300 MG/30 MG STARTER PACK 6 TAB BTL PO STA (08:34)
[2019-11-05 09:15] VITALS: BP 120/80
== END 2019-11-05 09:10 | disposition home or self-care (01) ==
LOC: EC 05:55
DX: R10.30 Lower abdominal pain, unspecified (principal); M54.9 Dorsalgia, unspecified; F41.9 Anxiety disorder, unspecified; R60.1 Generalized edema; Z79.899 Other long term (current) drug therapy; Z88.0 Allergy status to penicillin; Z88.2 Allergy status to sulfonamides
CPT/HCPCS: 36415; 80053; 82150; 83605; 83690; 85025; 85610; 85730; 81001; 81025; 99284; 96374; 96375; 96361; J1885; J2270

== ENCOUNTER → 2019-11-06 | Day surgery (SDC) | payer OTHER ==
[2019-11-04 15:44] VITALS: BMI 22.3
[2019-11-06 13:47] VITALS: BP 130/71; PULSE 80; RESP 16; TEMP 97.5
== END ==
LOC: ORWHC2ENDO 13:02
PROVIDERS: ATTEND Internal Medicine Gastroenterology
DX: R13.10 Dysphagia, unspecified (principal); Z53.29 Procedure and treatment not carried out because of patient's decision for other reasons; I48.91 Unspecified atrial fibrillation; J18.1 Lobar pneumonia, unspecified organism; I10 Essential (primary) hypertension; J44.9 Chronic obstructive pulmonary disease, unspecified; E11.9 Type 2 diabetes mellitus without complications; E78.5 Hyperlipidemia, unspecified; M19.90 Unspecified osteoarthritis, unspecified site; D64.9 Anemia, unspecified; H40.9 Unspecified glaucoma; F01.50 Vascular dementia, unspecified severity, without behavioral disturbance, psychotic disturbance, mood disturbance, and anxiety; Z86.73 Personal history of transient ischemic attack (TIA), and cerebral infarction without residual deficits; Z90.710 Acquired absence of both cervix and uterus; Z87.891 Personal history of nicotine dependence; Z79.01 Long term (current) use of anticoagulants; Z79.899 Other long term (current) drug therapy; Z79.4 Long term (current) use of insulin; Z86.19 Personal history of other infectious and parasitic diseases; Z87.09 Personal history of other diseases of the respiratory system; Z87.01 Personal history of pneumonia (recurrent)
CPT/HCPCS: 91010

== ENCOUNTER 2019-11-12 14:54 | Inpatient (IN) | payer MEDICAID, OTHER ==
--- NOTE | 2019-11-12 15:34 | ED ---
Psych HPI - General Chief Complaint: Psychiatric Symptoms Stated Complaint: Rather not say Time Seen by Provider: 11/12/19 15:10 Source: patient, RN notes reviewed Mode of arrival: ambulatory - History of Present Illness Initial Comments: This a 20-year-old female with no prior history of depression who is been being worked up recently for vague medical issues have been thus far undiagnosed who presents with complaints of feeling very depressed and despondent and suicidal. She does sure how to handle the events to go and at this time. She does have no history of alcohol abuse she did take a one half ago me of elbow marijuana recently. No fevers chills nausea vomiting sweats cough or any symptoms MD Complaint: suicidal ideation, feels depressed - Related Data Home Medications Medication Instructions Recorded Confirmed Sertraline [Zoloft] 50 mg PO HS 11/12/19 11/12/19 Allergies Allergy/AdvReac Type Severity Reaction Status Date / Time Penicillins Allergy Rash/Hives Verified 11/12/19 15:56 Sulfa (Sulfonamide Allergy Rash/Hives Verified 11/12/19 15:56 Antibiotics) Review of Systems ROS Statement: Those systems with pertinent positive or pertinent negative responses have been documented in the HPI. ROS Other: All systems not noted in ROS Statement are negative. Past Medical History Additional Past Medical History / Comment(s): pelvic congestion syndrome, difficulty swallowing - testing for autoimmune disorders History of Any Multi-Drug Resistant Organisms: None Reported Past Surgical History: No Surgical Hx Reported Additional Past Surgical History / Comment(s): EGD Past Anesthesia/Blood Transfusion Reactions: No Reported Reaction Past Psychological History: Anxiety Smoking Status: Never smoker Past Alcohol Use History: None Reported Past Drug Use History: None Reported - Past Family History Mother Family Medical History: No Reported History General Exam - General Exam Comments Initial Comments: This is a well-developed well-nourished awake alert oriented 3 female Limitations: no limitations General appearance: alert, in no apparent distress Head exam: Present: atraumatic, normocephalic, normal inspection Eye exam: Present: normal appearance, PERRL, EOMI. Absent: scleral icterus, conjunctival injection, periorbital swelling ENT exam: Present: normal exam, mucous membranes moist Neck exam: Present: normal inspection. Absent: tenderness, meningismus, lymphadenopathy Respiratory exam: Present: normal lung sounds bilaterally. Absent: respiratory distress, wheezes, rales, rhonchi, stridor Cardiovascular Exam: Present: regular rate, normal rhythm, normal heart sounds. Absent: systolic murmur, diastolic murmur, rubs, gallop, clicks GI/Abdominal exam: Absent: distended, tenderness, guarding, rebound, rigid Extremities exam: Present: normal inspection, full ROM, normal capillary refill. Absent: tenderness, pedal edema, joint swelling, calf tenderness Back exam: Present: normal inspection, full ROM Neurological exam: Present: alert, oriented X3, CN II-XII intact Psychiatric exam: Present: depressed, flat affect, suicidal ideation Skin exam: Present: warm, dry, intact, normal color. Absent: rash Course Vital Signs 11/12/19 15:56 Temperature 98.0 F Pulse Rate 99 Respiratory 16 Rate Blood Pressure 127/80 O2 Sat by Pulse 99 Oximetry Medical Decision Making - Medical Decision Making The patient rested comfortably in emergency department throughout the day she was evaluated by the EPS service she will be admitted for inpatient treatment and evaluation. - Lab Data Lab Results 11/12/19 Range/Units 16:25 Urine Opiates Screen Not Detected (NotDetected) Ur Oxycodone Screen Not Detected (NotDetected) Urine Methadone Screen Not Detected (NotDetected) Ur Propoxyphene Screen Not Detected (NotDetected) Ur Barbiturates Screen Not Detected (NotDetected) U Tricyclic Antidepress Not Detected (NotDetected) Ur Phencyclidine Scrn Not Detected (NotDetected) Ur Amphetamines Screen Not Detected (NotDetected) U Methamphetamines Scrn Not Detected (NotDetected) U Benzodiazepines Scrn Not Detected (NotDetected) Urine Cocaine Screen Not Detected (NotDetected) U Marijuana (THC) Screen Detected H (NotDetected) Disposition Clinical Impression: Depression, Suicidal ideation Disposition: TRANSFER TO PSYCH HOSP/UNIT Condition: Stable Referrals: Veronica Macias DO [Primary Care Provider] - 1-2 days
[2019-11-12 17:05] LABS: Amphetamine Screen,Urine Not Detected (NotDetected); Barbiturate Screen,Urine Not Detected (NotDetected); Benzodiazepines Screen,Urine Not Detected (NotDetected); Cocaine Screen,Urine Not Detected (NotDetected); Methadone Screen, Urine Not Detected (NotDetected); Opiate Screen,Urine Not Detected (NotDetected); Oxycodone Screen, Urine Not Detected (NotDetected); Phencyclidine Screen,Urine Not Detected (NotDetected); Tricyclic Antidepressant,Urine Not Detected (NotDetected); Urn Cannabinoid Scrn Detected (NotDetected)
[2019-11-12] MEDS ORDERED: ACETAMINOPHEN TAB 325 MG TAB PO PRN (22:39)
[2019-11-12] MEDS ORDERED: MAG HYDROX/AL HYDROX/SIMETH 30 ML CUP PO PRN (22:39)
[2019-11-12] MEDS ORDERED: ZIPRASIDONE 20 MG VIAL IM PRN (22:39)
[2019-11-12] MEDS ORDERED: LORazepam 1 MG TAB PO PRN (22:39)
[2019-11-12] MEDS ORDERED: MAGNESIUM HYDROXIDE 2,400 MG/10 ML CUP PO PRN (22:39)
[2019-11-12] MEDS ORDERED: LORazepam 2 MG/ML INJ IM PRN (22:43)
--- NOTE | 2019-11-13 03:42 | P.MDCNMH ---
History of Present Illness H&P Date: 11/13/19 Chief Complaint: Suicidal ideation 29-year-old female recently diagnosed with pelvic congestion syndrome. Patient reports that since the beginning of the year she has been having overwhelming concerns regarding her health when she was diagnosed with pelvic congestion syndrome and then started to notice varicose veins in her legs and some trouble swallowing without reaching the definite diagnosis is currently being worked up for autoimmune disease due to feeling generalized weakness and occasional muscle weakness. This has been overwhelming for her she started using some marijuana to relax. However today she was having some suicidal thoughts for which she decided to come to the hospital seeking help Otherwise currently she denies any physical complaints at this point denies any fevers chills coughing nausea vomiting chest pain or trouble breathing Review of Systems Pertinent positives as noted in HPI. All other systems were reviewed and are negative Past Medical History Additional Past Medical History / Comment(s): pelvic congestion syndrome, difficulty swallowing - testing for autoimmune disorders History of Any Multi-Drug Resistant Organisms: None Reported Past Surgical History: No Surgical Hx Reported Additional Past Surgical History / Comment(s): EGD Past Anesthesia/Blood Transfusion Reactions: No Reported Reaction Smoking Status: Never smoker - Past Family History Mother Family Medical History: No Reported History Medications and Allergies Home Medications Medication Instructions Recorded Confirmed Type Sertraline [Zoloft] 50 mg PO HS 11/12/19 11/12/19 History Allergies Allergy/AdvReac Type Severity Reaction Status Date / Time Penicillins Allergy Rash/Hives Verified 11/12/19 15:56 Sulfa (Sulfonamide Allergy Rash/Hives Verified 11/12/19 15:56 Antibiotics) Physical Exam Vitals: Vital Signs Temp Pulse Pulse Resp BP BP Pulse Ox 11/13/19 01:23 98.8 F 82 16 123/73 11/12/19 15:56 98.0 F 99 16 127/80 99 Intake and Output 11/12/19 11/12/19 11/13/19 14:59 22:59 06:59 Other: Weight 58.967 kg Constitutional: No acute distress, conversant, pleasant Eyes: Anicteric sclerae, moist conjunctiva, no lid-lag Pupils equal round reactive to light ENMT: NC/AT Oropharynx clear, no erythema, exudates Neck: Supple, FROM, no masses, or JVD No carotid bruits No thyromegaly Lungs: Clear to auscultation Clear to percussion Normal respiratory effort, no accessory muscle use Cardiovascular: Heart regular in rate and rhythm, No murmurs, gallops, or rubs No peripheral edema Abdominal: Soft Nontender, no guarding, rebound or rigidity Abdomen moving with respiration Normoactive bowel sounds No hepatomegaly, No splenomegaly No palpable mass No abdominal wall hernia noted Skin: Normal temperature, tone, texture, turgor No induration No subcutaneous nodules No rash, lesions No ulcers Extremities: No digital cyanosis No clubbing Pedal pulses intact and symmetrical Radial pulses intact and symmetrical No calf tenderness Psychiatric: Alert and oriented to person, place and time Appropriate affect fair judgement Neuro Muscles Strength 5/5 in all 4 extremities Sensation to light touch grossly present throughout Cranial nerves II-XII grossly intact No focal sensory deficits Lymphatics: no palpable cervical or supraclavicular , or inguinal lymph n odes Cranial Nerve Examination - Cranial Nerves Cranial Nerve II- Optic: Intact Cranial Nerve III- Oculomotor: Intact Cranial Nerve IV- Trochlear: Intact Cranial Nerve V- Trigeminal: Intact Cranial Nerve - Abducens: Intact Cranial Nerve VII- Facial: Intact Cranial Nerve VIII- Auditory: Intact Cranial Nerve IX- Glossopharyngeal: Intact Cranial Nerve X- Vagus: Intact Cranial Nerve XI- Accessory: Intact Cranial Nerve XII- Hypoglossal: Intact Results Labs: Abnormal Lab Results - Last 24 Hours (Table) 11/12/19 Range/Units 16:25 U Marijuana (THC) Screen Detected H (NotDetected) Assessment and Plan Assessment: suicidal ideation , depression management per psych ovarian varicose veins OP follow up follow up labs Thank you for allowing us to participate in the care of this patient. We will follow peripherally. Do not hesitate to contact us with questions. Someone can be reached from the [facility] hospitalist group at all hours of the day at [phone].
[2019-11-13 07:58] LABS: Basophils # (A) 0.1 k/uL (0-0.2); Basophils % (A) 1 %; Eosinophils # (A) 0.1 k/uL (0-0.7); Eosinophils % (A) 1 %; HCT 41.1 % (34.0-46.0); HGB 13.3 gm/dL (11.4-16.0); Lymphocytes # (A) 2.1 k/uL (1.0-4.8); Lymphocytes % (A) 28 %; MCH 28.3 pg (25.0-35.0); MCHC 32.3 g/dL (31.0-37.0); MCV 87.8 fL (80.0-100.0); Mean Platelet Volume 7.9; Monocytes # (A) 0.4 k/uL (0-1.0); Monocytes % (A) 5 %; Neutrophils # (A) 4.7 k/uL (1.3-7.7); Neutrophils % (A) 64 %; Platelet Count 201 k/uL (150-450); RBC 4.68 m/uL (3.80-5.40); RDW 12.4 % (11.5-15.5); WBC 7.3 k/uL (3.8-10.6)
[2019-11-13 08:07] LABS: ALT 10 U/L (4-34); AST 20 U/L (14-36); African American GFR (CKD) >90 (>60 ml/min/1.73 sqM); Albumin 4.4 g/dL (3.5-5.0); Alkaline Phosphatase 46 U/L (38-126); Anion Gap 9 mmol/L; Blood Urea Nitrogen 16 mg/dL (7-17); Carbon Dioxide 23 mmol/L (22-30); Chloride 106 mmol/L (98-107); Cholesterol 148 mg/dL (<200); Glucose 91 mg/dL (74-99); HDL Cholesterol 54 mg/dL (40-60); LDL Cholesterol,Calculated 83 mg/dL (0-99); Non-African American GFR(CKD) >90 (>60 ml/min/1.73 sqM); Potassium 4.3 mmol/L (3.5-5.1); Sodium 138 mmol/L (137-145); Total Bilirubin 0.5 mg/dL (0.2-1.3); Total Protein 6.9 g/dL (6.3-8.2); Triglycerides 57 mg/dL (<150)
--- NOTE | 2019-11-13 12:00 | P.HP ---
Psychiatric H&P - . H&P Date: 11/13/19 History & Physical: Allergies Allergy/AdvReac Type Severity Reaction Status Date / Time Penicillins Allergy Rash/Hives Verified 11/12/19 15:56 Sulfa (Sulfonamide Allergy Rash/Hives Verified 11/12/19 15:56 Antibiotics) Vital Signs Temp 98.8 F 11/13/19 01:23 Pulse 82 11/13/19 01:23 Resp 16 11/13/19 01:23 BP 123/73 11/13/19 01:23 Pulse Ox 99 11/12/19 15:56 Intake & Output 11/12/19 11/13/19 11/13/19 18:59 06:59 18:59 Weight 58.967 kg Laboratory Last Values WBC 7.3 k/uL (3.8-10.6) 11/13/19 07:24 RBC 4.68 m/uL (3.80-5.40) 11/13/19 07:24 Hgb 13.3 gm/dL (11.4-16.0) 11/13/19 07:24 Hct 41.1 % (34.0-46.0) 11/13/19 07:24 MCV 87.8 fL (80.0-100.0) 11/13/19 07:24 MCH 28.3 pg (25.0-35.0) 11/13/19 07:24 MCHC 32.3 g/dL (31.0-37.0) 11/13/19 07:24 RDW 12.4 % (11.5-15.5) 11/13/19 07:24 Plt Count 201 k/uL (150-450) 11/13/19 07:24 Neutrophils % 64 % 11/13/19 07:24 Lymphocytes % 28 % 11/13/19 07:24 Monocytes % 5 % 11/13/19 07:24 Eosinophils % 1 % 11/13/19 07:24 Basophils % 1 % 11/13/19 07:24 Neutrophils # 4.7 k/uL (1.3-7.7) 11/13/19 07:24 Lymphocytes # 2.1 k/uL (1.0-4.8) 11/13/19 07:24 Monocytes # 0.4 k/uL (0-1.0) 11/13/19 07:24 Eosinophils # 0.1 k/uL (0-0.7) 11/13/19 07:24 Basophils # 0.1 k/uL (0-0.2) 11/13/19 07:24 Sodium 138 mmol/L (137-145) 11/13/19 07:24 Potassium 4.3 mmol/L (3.5-5.1) 11/13/19 07:24 Chloride 106 mmol/L (98-107) 11/13/19 07:24 Carbon Dioxide 23 mmol/L (22-30) 11/13/19 07:24 Anion Gap 9 mmol/L 11/13/19 07:24 BUN 16 mg/dL (7-17) 11/13/19 07:24 Creatinine 0.66 mg/dL (0.52-1.04) 11/13/19 07:24 Est GFR (CKD-EPI)AfAm >90 (>60 ml/min/1.73 sqM) 11/13/19 07:24 Est GFR (CKD-EPI)NonAf >90 (>60 ml/min/1.73 sqM) 11/13/19 07:24 Glucose 91 mg/dL (74-99) 11/13/19 07:24 Calcium 9.0 mg/dL (8.4-10.2) 11/13/19 07:24 Total Bilirubin 0.5 mg/dL (0.2-1.3) 11/13/19 07:24 AST 20 U/L (14-36) 11/13/19 07:24 ALT 10 U/L (4-34) 11/13/19 07:24 Alkaline Phosphatase 46 U/L (38-126) 11/13/19 07:24 Total Protein 6.9 g/dL (6.3-8.2) 11/13/19 07:24 Albumin 4.4 g/dL (3.5-5.0) 11/13/19 07:24 Triglycerides 57 mg/dL (<150) 11/13/19 07:24 Cholesterol 148 mg/dL (<200) 11/13/19 07:24 LDL Cholesterol, Calc 83 mg/dL (0-99) 11/13/19 07:24 HDL Cholesterol 54 mg/dL (40-60) 11/13/19 07:24 TSH 1.220 mIU/L (0.465-4.680) 11/13/19 07:24 Urine Opiates Screen Not Detected (NotDetected) 11/12/19 16:25 Ur Oxycodone Screen Not Detected (NotDetected) 11/12/19 16:25 Urine Methadone Screen Not Detected (NotDetected) 11/12/19 16:25 Ur Propoxyphene Screen Not Detected (NotDetected) 11/12/19 16:25 Ur Barbiturates Screen Not Detected (NotDetected) 11/12/19 16:25 U Tricyclic Antidepress Not Detected (NotDetected) 11/12/19 16:25 Ur Phencyclidine Scrn Not Detected (NotDetected) 11/12/19 16:25 Ur Amphetamines Screen Not Detected (NotDetected) 11/12/19 16:25 U Methamphetamines Scrn Not Detected (NotDetected) 11/12/19 16:25 U Benzodiazepines Scrn Not Detected (NotDetected) 11/12/19 16:25 Urine Cocaine Screen Not Detected (NotDetected) 11/12/19 16:25 U Marijuana (THC) Screen Detected (NotDetected) H 11/12/19 16:25 11/13/19 11:53 IDENTIFYING DATA: Patient is a 29-year-old female currently lives with her boyfriend in a house and 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 HPI: Patient presented to the hospital yesterday with a complaint of depression and suicidal thoughts. Patient apparently has no prior psychiatric history and reported to have had thoughts of putting a gun to her head to shoot herself. Patient's UDS is positive for THC. Patient was admitted to the mental health unit and was agreeable history to comic book writer today and be interviewed. She endorsed concerns about recent health issues, pain dysphagia and weakness. She states that the last 6 months have been "the hardest time of my life". She states that in January she was noticed to have a tick bite and had to take removed and states that afterwards she started having more health complications. She states that she is having some tingling and also joint pain. She claims that in July she stopped working due to her weakness and pain and also claims that she has been having varicose veins in her legs which have "come out of nowhere". Patient claims that she has been feeling more more depressed and anxious and also having guilt. She states that this has been causing relationship problems between her and her boyfriend and states that her boyfriend recently has been talking to his ex-girlfriend. She states that she will probably have to move out of the house. She states that she was having thoughts of shooting herself with a gun however believes that the boyfriend remove the gun from the house. She states that her grandpa also yesterday which she recently found out about. She states that she is having poor appetite and poor sleep approximately 3-4 hours a night. Patient denies any suicidal or homicidal ideations intent or plan. At this time patient denies any auditory or visual hallucinations. Patient denies any flight of ideas racing thoughts and increased in goal directed behavior. Patient admits to using edible THC gummies, and denies any cigarettes or alcohol use. PAST PSYCHIATRIC HISTORY: Patient states that she is had no previous psychiatric history. She claims that she has been treated on Zoloft and BuSpar and Lexapro in the past by her primary care physician. Patient denies any previous psychiatric hospitalizations. Patient denies any psychiatric outpatient follow- up. Patient denies any history of suicide attempts in the past. PMH: Pelvic congestion syndrome, currently being tested for autoimmune disorders. ALLERGIES: as per EMR CHEMICAL DEPENDENCY HISTORY: as per HPI FAMILY PSYCHIATRIC/SUBSTANCE USE HISTORY: Claims that her grandmother suffered from depression and her brother has OCD. SOCIAL HISTORY: Patient was born and raised in [place] and claims that she completed high school and also a bachelor's degree in [employer]. She currently lives with her boyfriend in a house has no kids and is currently unemployed however used to work as a massage therapist. She did not endorse any legal problems at this time. MENTAL STATUS EXAM: General Appearance: Patient appears to be stated age is alert, directable, and attempts to cooperate. Patient appears to have fair hygiene and grooming. Behavior: Patient is seated without any agitated behavior. Timid Speech: Patient's speech is fluent and nonpressured. Soft tone. Mood/Affect: Patient reports their mood is depressed and anxious, affect is congruent and tearful. Suicidality/Homicidality: Patient denies having any homicidal ideation intent or plan. Denies any suicidal ideations intent or plan Perceptions: Patient denies any visual hallucinations and denies any auditory hallucinations Though content/process: There is no evidence of any delusional thought content and thought process is linear and goal-directed. Focused on her symptoms and catastrophizing. Memory and concentration: AOX3, grossly intact for the purposes of this session. Can spell "WORLD" backwards Judgment and insight: poor STRENGTHS/WEAKNESSES: strength is that patient is resilient. Weakness is that patient has poor judgment INTELLECT: average IMPRESSIONS: Major depressive disorder, without psychotic features Anxiety disorder unspecified PLAN: -Patient is admitted under voluntary status to MHU for stabilization of psychiatric symptoms and safety. Patient signed adult voluntary form and medication consent and is placed in patient's chart. -Medications : Will start patient on Cymbalta 30 mg daily for mood/anxiety/pain with plan to titrate up as needed over the weekend. Patient will also be started on melatonin 5 mg nightly for insomnia. -Ativan and Geodon PRN for agitation/aggression -Patient was informed of the risks, benefits and side effects of the medication and patient verbally consented to taking the medications. Patient signed med consent form and was placed in chart. -Internal Medicine consult to perform medical evaluation and physical. -NRT -not needed as patient does not smoke. -SW on board for discharge planning. Encourage patient to participate in groups to work on coping skills. Prior to discharge will need to touch base with patient's boyfriend and mother to make sure that the firearms or removed from the house or any other weapons. Likely discharge in 2-3 days.
[2019-11-13] MEDS: DULoxetine HCL 30 MG CAPSULE.DR PO SCH (12:32)
[2019-11-13 15:01] LABS: Hemoglobin A1C 4.8 % (4.0-6.0)
[2019-11-13 15:28] VITALS: BMI 22.3
[2019-11-13] MEDS: MELATONIN 5 MG TABLET PO SCH (20:44)
[2019-11-14] MEDS: DULoxetine HCL 30 MG CAPSULE.DR PO SCH (09:03)
[2019-11-14] MEDS: MELATONIN 5 MG TABLET PO SCH (20:50)
--- NOTE | 2019-11-14 21:52 | PN ---
DATE OF SERVICE: 11/14/2019 PROGRESS NOTE CHIEF COMPLAINT: The patient was having increasing problems with depression and had suicide thoughts including the idea of putting a gun to her head to shoot herself. INTERVAL HISTORY: The patient has been doing fair. She seems to be making progress. She attended 2 out of 4 groups yesterday and seemed to be appropriate in her interactions in group. She has been cooperative with care. She slept well last night. Today she has been up. She comes out in the day area. She has been attending groups today. She said that she is quite clear about the idea of not having any thoughts about harm to herself. She said that she was somewhat taken back by her statement regarding that, in that she has never had any thoughts in that direction in the past. She acknowledges some depression which she relates to a significant degree to various physical struggles that she has had. She says that she has had some vascular issues which are new. She notes that she has an appointment set up at [facility] this coming week for an evaluation for these concerns. We discussed at length the struggles she has had with depression. 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 She says the loss of that work and her physical problems contributed to her struggles with depression. There have been relationship issues that she has been dealing with and says that she anticipates moving back with her parents. He notes that she anticipates getting involved in individual psychotherapy along with followup for medications as part of her discharge plan. She tolerates the start up of Cymbalta. MENTAL STATUS: Patient gave good eye contact. Psychomotor activity was somewhat restless. She answered questions with direct responses. Her thoughts were clear. She was spontaneous and interactive. Her affect was somewhat constricted though not to a significant degree. Her mood was dysphoric. Early on in the interview, she had a somewhat more positive attitude, though as the discussion went on, she became down, she talked about the distress she is experiencing being on the unit and how the environment does create stress for her. She says that she would feel more comfortable being back home with family. There was no indication of thought disorder. Cognition was clear. ASSESSMENT: I will continue the current diagnosis and treatment plan. Patient will continue Cymbalta 30 mg a day. I had an extensive discussion with the patient regarding treatment of depression and expectations for her medications. The patient does note that she is hopeful to be discharged early in the week as she has a followup appointment for some of her medical concerns that she feels are quite important, both from a physical standpoint as well as for addressing some of her mood issues. She voices no thoughts of self-harm. We will continue to focus on stabilization and discharge planning. ADRIENNE / MAGNOLIA: [phone] / DAVID
[2019-11-15] MEDS: DULoxetine HCL 30 MG CAPSULE.DR PO SCH (08:27)
--- NOTE | 2019-11-15 12:21 | PN ---
PROGRESS NOTE DATE OF SERVICE: 11/15/2019 CHIEF COMPLAINT: The patient was having increasing problems with depression and had suicide thoughts including the idea of putting a gun to her head to shoot herself. INTERVAL HISTORY: Patient has been doing fairly well. She had a quiet evening last night. She was out in the day area. She interacts with peers. She has found 1 peer where she finds a lot of commonality. They talk and walk quite a bit. She has been attending groups. She slept well last night. Today she has been up and she comes out in the day area. She says that overall her mood is improving. She feels that either her therapy work or the Cymbalta have been helping her. She continues with concerns about physical issues that she struggled with. She says that going back to the fall, it seems to her that the pain problems she was having, which started generally in the pelvic region, caused a lot of change in her life. 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 She changed a lot of her general habits in life such as going for walks and doing other outdoor activities that seem to fold into problems. Her boyfriend was having some of his own personal issues and their relationship deteriorated. When COVID came about, things got even worse for her. She notes vein problems in her legs. She has had continued pelvic issues that affect her periods. She has been having esophageal problems as well and notes that she was unable to complete an esophageal motility test recently because of problems she was having. She notes that she has an appointment at [facility] with a vein specialist, which I believe is scheduled for Saturday. She has lost weight, though on the unit she has been eating fairly well. She has slept better each night. She tolerates her Cymbalta as her only psychotropic medication. MENTAL STATUS: Patient sat with just a little restlessness. She gave good eye contact. She was interactive. Her thoughts were clear and coherent. She was spontaneous and interactive. She was quite thoughtful in regard to looking at some of her personal issues. She had a good range of affect. Her mood was in a reasonable range. She was somewhat dysphoric at times as she talked about some of the struggles she has had. She seemed to have an appropriate emotional response to things that she has been dealing with. She does not appear to be significantly distressed. There was no indication of thought disorder. She voices no thoughts of harm to self or others. She seems to show improved insight and awareness. Cognition is clear. ASSESSMENT: I will continue the current diagnosis and treatment plan. I will increase Cymbalta to 60 mg a day. Discussed with the patient that 60 mg is a standard dose for Cymbalta and that would be reasonable for her, even though she is making gains with the short time she has been on Cymbalta. There would be some risks that she may see improvement drop- off on the lower dose which could be problematic for her. The patient has made good progress. I anticipate the patient being discharged early in the week, possibly tomorrow, especially so that she is able to get followup for other issues she has been dealing with. We will focus on stabilization and discharge planning. ADRIENNE / MAGNOLIA: [phone] /
[2019-11-15] MEDS: MELATONIN 5 MG TABLET PO SCH (21:30)
[2019-11-16] MEDS ORDERED: DULoxetine HCL 60 MG CAPSULE.DR PO SCH (09:00)
--- NOTE | 2019-11-16 10:16 | P.PN ---
Progress Note - Text Progress Note Date: 11/16/19 Interval History: Patient was seen taking part in group this morning and was directable and agre eable to speak with machine sign writer in the office. Patient appears to have an improved affect today when speaking with machine sign writer. She states that her mood has been gradually improving on the current medications and claims that her pain is also mildly improving with the Cymbalta. Patient claims that she has not taken the increased dose of 60 mg this morning as she wanted to speak with machine sign writer first. She states that she believes her anxiety could be improved. She was agreeable to take the 60 mg today and tomorrow morning. Patient was claiming that she spoke with her parents who are preparing for her discharge possibly tomorrow. She states that she is not sleeping very well at night however blames it on other people on the unit. She claims that she is drinking ensure because of her decreased esophageal motility. At this time patient denies any suicidal or homical ideations, intent or plan. Patient denies any auditory, visual hallucinations and denies any paranoia or delusions. Patient denies any side effects from the medications and has been compliant with meds. Mental Status Exam: General Appearance: Patient appears to be stated age is alert, directable, and attempts to be cooperate. Patient appears to have fair hygiene and grooming. Behavior: Patient is seated without any agitated behavior. Speech: Patient's speech is fluent and nonpressured. Soft tone. Mood/Affect: Patient reports their mood is improving mildly, affect is congruent Suicidality/Homicidality: Patient denies having any homicidal ideation intent or plan. Denies any suicidal ideations intent or plan Perceptions: Patient denies any visual hallucinations and denies any auditory hallucinations Though content/process: There is no evidence of any delusional thought content and thought process is linear and goal-directed. Focused on discharge Memory and concentration: AOX3, grossly intact for the purposes of this session. Judgment and insight: Improving mildly. Assessment Major depressive disorder, without psychotic features Anxiety disorder unspecified Plan: -Patient continues to meet criteria for inpatient psychiatric admission for symptom stabilization and safety. Patient has signed [adult voluntary form and] medication consent and was placed in patient's chart. -Medications: Increased Cymbalta to 60 mg daily for mood/anxiety/pain. Will monitor for any side effects. Continue with melatonin 5 mg nightly for insomnia as patient does not want this medication increased. -When necessary Ativan and Geodon for agitation/aggression. -NRT -not needed as patient does not smoke. -SW on board for discharge planning. Encouraged the patient to participate in milieu. Prior to discharge will need to touch base with patient's boyfriend and family to make sure that the firearms or removed from the house or any other weapons. Likely discharge tomorrow morning.
[2019-11-16] MEDS: MELATONIN 5 MG TABLET PO SCH (20:27)
[2019-11-17 06:14] VITALS: BP 104/56; PULSE 62; RESP 16; TEMP 98.4
[2019-11-17] MEDS ORDERED: DULoxetine HCL 30 MG CAPSULE.DR PO SCH ×2 (09:00→21:00)
--- NOTE | 2019-11-17 09:18 | P.DS ---
Providers Date of admission: 11/12/19 22:26 Expected date of discharge: 11/17/19 Attending physician: Jean Kaur MD Consults: 11/12/19 22:39 Consult Physician Routine Consulting Provider: Steve Physician Consult Reason/Comments: medical management Do you want consulting provider notified?: Yes Primary care physician: Veronica Macias - Discharge Diagnosis(es) (1) Major depressive disorder without psychotic features Current Visit: Yes Status: Acute Priority: High (2) Anxiety disorder, unspecified Current Visit: Yes Status: Acute Priority: Medium Hospital Course: Admission HPI: Patient is a 29-year-old female currently lives with her boyfriend in a house and 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 Patient presented to the hospital yesterday with a complaint of depression and suicidal thoughts. Patient apparently has no prior psychiatric history and reported to have had thoughts of putting a gun to her head to shoot herself. Patient's UDS is positive for THC. Patient was admitted to the mental health unit and was agreeable history to personal lines underwriter today and be interviewed. She endorsed concerns about recent health issues, pain dysphagia and weakness. She states that the last 6 months have been "the hardest time of my life". She states that in January she was noticed to have a tick bite and had to take removed and states that afterwards she started having more health complications. She states that she is having some tingling and also joint pain. She claims that in July she stopped working due to her weakness and pain and also claims that she has been having varicose veins in her legs which have "come out of nowhere". Patient claims that she has been feeling more more depressed and anx ious and also having guilt. She states that this has been causing relationship problems between her and her boyfriend and states that her boyfriend recently has been talking to his ex-girlfriend. She states that she will probably have to move out of the house. She states that she was having thoughts of shooting herself with a gun however believes that the boyfriend remove the gun from the house. She states that her grandpa also yesterday which she recently found out about. She states that she is having poor appetite and poor sleep approximately 3-4 hours a night. Patient denies any suicidal or homicidal ideations intent or plan. At this time patient denies any auditory or visual hallucinations. Patient denies any flight of ideas racing thoughts and increased in goal directed behavior. Patient admits to using edible THC gummies, and denies any cigarettes or alcohol use. Hospital course: Upon admission to the unit patient was initially depressed and tearful. Patient was however directable and agreeable to commence treatment. Patient got along well with other patients on the unit and followed unit protocol. Patient was compliant with the medications and denied any side effects throughout hospital course. Patient was started on Cymbalta and titrated up to a dose of 30 mg twice a day for anxiety/depression/pain. Patient was also started on melatonin 5 mg nightly for insomnia. Patient spoke of her stressors and engaged in therapy both group and individual. Patient was also seen by medical team for history and physical exam. Throughout the course of the hospitalization patient gradually improved with regards to mood, anxiety, sleep and became future oriented with improved insight and judgment. On the day of discharge patient denied any suicidal or homicidal ideations intent or plan denied any auditory or visual hallucinations. Patient endorsed wanting to live for her future and her family. The patient denied any access to guns or weapons, healthcare social worker contacted family who states that they do not have any guns in the house at this time. Patient denied any paranoia and did not endorse any delusions. Patient does not have a significant history of substance abuse however was counseled on abstaining from all substances including alcohol and marijuana. Patient was also counseled on the medications and need for regular compliance and was encouraged to follow-up with their outpatient appointment for mental health and also for primary care. Prior to discharge a family meeting will be arranged by healthcare social worker to answer any questions and ensure safety upon discharge. Mental status exam: General Appearance: Patient appears to be stated age is alert, pleasant, and cooperative. Patient is in no acute distress and has fair hygiene and grooming Behavior: Patient is calmly seated without any agitated behavior. Speech: Patient's speech is fluent and nonpressured. Mood/Affect: Patient reports their mood is "much better", affect is congruent and euthymic. Suicidality/Homicidality: Patient denies having any suicidal or homicidal ideation intent or plan. Perceptions: Patient denies any auditory or visual hallucinations. Though content/process: There is no evidence of any delusional thought content and thought process is linear and goal-directed. more future oriented Memory and concentration: AOX3, grossly intact for the purposes of this session. Can spell "WORLD" backwards correctly. Judgment and insight: Improved with guarded prognosis Impression: Major depressive disorder without psychotic features Anxiety disorder unspecified Plan: -Continue with discharge today as patient has improved and stabilized psychiatrically and is not currently an imminent threat to herself and/or others. -Continue medications: Cymbalta 30 mg twice a day for anxiety/depression/pain. Patient was advised that if she experiences any adverse side effects to cut back down to 30 mg daily and contact her outpatient psychiatrist. Continue with melatonin 5 mg daily at bedtime when necessary for insomnia. -Patient was counseled on the need for medication compliance and appropriate follow-up at mental health and also primary care for medical issues. Patient verbalized understanding and agreed. -Social work to arrange for and conduct family meeting to ensure safety upon discharge and answer any questions/concerns. Social work also to arrange for patients follow up appointments for psychiatric care along with follow up with primary care provider. dock worker confirmed with family over the phone that they have removed the weapons from the house. -Patient counseled on abstaining from recreational drugs and marijuana and alcohol. Was informed/educated on the adverse effects on their physical and mental health. Patient verbally agreed and understood. -Patient was instructed to return to the hospital or seek immediate medical care if their psychiatric or medical symptoms do worsen or reoccur. Allergies Allergy/AdvReac Type Severity Reaction Status Date / Time Penicillins Allergy Rash/Hives Verified 11/12/19 15:56 Sulfa (Sulfonamide Allergy Rash/Hives Verified 11/12/19 15:56 Antibiotics) Laboratory Results WBC 7.3 k/uL (3.8-10.6) 11/13/19 07:24 RBC 4.68 m/uL (3.80-5.40) 11/13/19 07:24 Hgb 13.3 gm/dL (11.4-16.0) 11/13/19 07:24 Hct 41.1 % (34.0-46.0) 11/13/19 07:24 MCV 87.8 fL (80.0-100.0) 11/13/19 07:24 MCH 28.3 pg (25.0-35.0) 11/13/19 07:24 MCHC 32.3 g/dL (31.0-37.0) 11/13/19 07:24 RDW 12.4 % (11.5-15.5) 11/13/19 07:24 Plt Count 201 k/uL (150-450) 11/13/19 07:24 Neutrophils % 64 % 11/13/19 07:24 Lymphocytes % 28 % 11/13/19 07:24 Monocytes % 5 % 11/13/19 07:24 Eosinophils % 1 % 11/13/19 07:24 Basophils % 1 % 11/13/19 07:24 Neutrophils # 4.7 k/uL (1.3-7.7) 11/13/19 07:24 Lymphocytes # 2.1 k/uL (1.0-4.8) 11/13/19 07:24 Monocytes # 0.4 k/uL (0-1.0) 11/13/19 07:24 Eosinophils # 0.1 k/uL (0-0.7) 11/13/19 07:24 Basophils # 0.1 k/uL (0-0.2) 11/13/19 07:24 Sodium 138 mmol/L (137-145) 11/13/19 07:24 Potassium 4.3 mmol/L (3.5-5.1) 11/13/19 07:24 Chloride 106 mmol/L (98-107) 11/13/19 07:24 Carbon Dioxide 23 mmol/L (22-30) 11/13/19 07:24 Anion Gap 9 mmol/L 11/13/19 07:24 BUN 16 mg/dL (7-17) 11/13/19 07:24 Creatinine 0.66 mg/dL (0.52-1.04) 11/13/19 07:24 Est GFR (CKD-EPI)AfAm >90 (>60 ml/min/1.73 sqM) 11/13/19 07:24 Est GFR (CKD-EPI)NonAf >90 (>60 ml/min/1.73 sqM) 11/13/19 07:24 Glucose 91 mg/dL (74-99) 11/13/19 07:[address] Glu mg/dL 91 11/13/19 07:24 Hemoglobin A1c 4.8 % (4.0-6.0) 11/13/19 07:24 Calcium 9.0 mg/dL (8.4-10.2) 11/13/19 07:24 Total Bilirubin 0.5 mg/dL (0.2-1.3) 11/13/19 07:24 AST 20 U/L (14-36) 11/13/19 07:24 ALT 10 U/L (4-34) 11/13/19 07:24 Alkaline Phosphatase 46 U/L (38-126) 11/13/19 07:24 Total Protein 6.9 g/dL (6.3-8.2) 11/13/19 07:24 Albumin 4.4 g/dL (3.5-5.0) 11/13/19 07:24 Triglycerides 57 mg/dL (<150) 11/13/19 07:24 Cholesterol 148 mg/dL (<200) 11/13/19 07:24 LDL Cholesterol, Calc 83 mg/dL (0-99) 11/13/19 07:24 HDL Cholesterol 54 mg/dL (40-60) 11/13/19 07:24 TSH 1.220 mIU/L (0.465-4.680) 11/13/19 07:24 Stool Occult Blood Negative (Negative) 11/16/19 08:28 Urine Opiates Screen Not Detected (NotDetected) 11/12/19 16:25 Ur Oxycodone Screen Not Detected (NotDetected) 11/12/19 16:25 Urine Methadone Screen Not Detected (NotDetected) 11/12/19 16:25 Ur Propoxyphene Screen Not Detected (NotDetected) 11/12/19 16:25 Ur Barbiturates Screen Not Detected (NotDetected) 11/12/19 16:25 U Tricyclic Antidepress Not Detected (NotDetected) 11/12/19 16:25 Ur Phencyclidine Scrn Not Detected (NotDetected) 11/12/19 16:25 Ur Amphetamines Screen Not Detected (NotDetected) 11/12/19 16:25 U Methamphetamines Scrn Not Detected (NotDetected) 11/12/19 16:25 U Benzodiazepines Scrn Not Detected (NotDetected) 11/12/19 16:25 Urine Cocaine Screen Not Detected (NotDetected) 11/12/19 16:25 U Marijuana (THC) Screen Detected (NotDetected) H 11/12/19 16:25 Vital Signs Temp 98.4 F 11/17/19 06:14 Pulse 62 11/17/19 06:14 Resp 16 11/17/19 06:14 BP 104/56 11/17/19 06:14 Pulse Ox 99 11/17/19 06:14 Patient Condition at Discharge: Stable Plan - Discharge Summary New Discharge Prescriptions: New DULoxetine HCL [Cymbalta] 30 mg PO BID 30 Days capsule. Melatonin 5 mg PO HS PRN 30 Days tablet PRN Reason: Insomnia Acetaminophen Tab [Tylenol] 650 mg PO Q4HR PRN tab PRN Reason: Pain/Discomfort Discontinued Sertraline [Zoloft] 50 mg PO HS Discharge Medication List Acetaminophen Tab [Tylenol] 650 mg PO Q4HR PRN tab 11/17/19 [Rx] DULoxetine HCL [Cymbalta] 30 mg PO BID 30 Days capsule. 11/17/19 [Rx] Melatonin 5 mg PO HS PRN 30 Days tablet 11/17/19 [Rx] Follow up Appointment(s)/Referral(s): Psychological, List [Other] - 11/17/19 2:15 pm (Zoom with Amanda Hernandez Please call office prior to appointment to set up email for ZOOM directions.) Veronica Macias, [Primary Care Provider] - 1-2 days Patient Instructions/Handouts: Depression (DC), Help Prevent Suicide (DC) Activity/Diet/Wound Care/Special Instructions: Activity and diet as tolerated. Avoid the use of street drugs and alcohol. Take all medications as prescribed. When you are in need of refills on your medications please contact your medical provider and/or outpatient psychiatrist to have this done. Please go to scheduled outpatient appointment for aftercare treatment. If symptoms return or become worse, call the crisis line at and/or go to the nearest emergency room for evaluation Discharge Disposition: HOME SELF-CARE
== END 2019-11-17 10:28 | disposition home or self-care (01) | DRG 881 ==
LOC: EC 14:54 → 3MHU 22:26
PROVIDERS: ADMIT Psychiatry & Neurology Psychiatry; ATTEND Psychiatry & Neurology Psychiatry
DX: F32.9 Major depressive disorder, single episode, unspecified (principal); R45.851 Suicidal ideations; F41.9 Anxiety disorder, unspecified; G47.00 Insomnia, unspecified; Z56.0 Unemployment, unspecified; Z81.8 Family history of other mental and behavioral disorders; Z88.0 Allergy status to penicillin; Z88.2 Allergy status to sulfonamides; Z63.4 Disappearance and death of family member; I83.90 Asymptomatic varicose veins of unspecified lower extremity; W57.XXXD Bitten or stung by nonvenomous insect and other nonvenomous arthropods, subsequent encounter
CPT/HCPCS: 80053; 80061; 80306; 82075; 82272; 83036; 84443; 85025; 99285